=== PATIENT | male | born 1995 | race African-American/Black ===

== ENCOUNTER 2017-11-15 23:58 | Emergency (ER) | payer OTHER ==
[~2017-11-15] VITALS: Ht 177.8 cm; Wt 97.5 kg
--- NOTE | ~2017-11-15 | EKG ---
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
[2017-11-16 00:34] LABS: ABSOLUTE NEUTROPHILS 5.9 thou/uL (1.4-8.2); BASOPHILS 0.4 % (0.0-2.0); EOSINOPHILS 1.6 % (0.0-3.0); HEMATOCRIT 45.1 % (42.0-52.0); HEMOGLOBIN 15.2 gm/dL (14.0-18.0); LYMPHOCYTES 32.7 % (24.0-44.0); MCH 27.5 pg (26.0-34.0); MCHC 33.7 g/dL (28.0-37.0); MCV 81.6 fL (80.0-100.0); PLATELET COUNT 225 thou/uL (150-400); POLYS 58.3 % (36.0-66.0); RBC 5.52 mil/uL (4.50-6.00); RDW 13.8 % (10.5-14.5); WBC 10.1 thou/uL (4.0-11.0)
[2017-11-16 00:35] LABS: ANION GAP 11 mmol/L (7-16); BUN 10 mg/dL (7-18); CALCIUM 9.3 mg/dL (8.5-10.1); CHLORIDE 101 mmol/L (98-107); CO2 27 mmol/L (21-32); CREATININE 1.3 mg/dL (0.7-1.3); GLUCOSE 109 mg/dL (74-106); POTASSIUM 3.3 mmol/L (3.5-5.1); SODIUM 139 mmol/L (136-145)
[2017-11-16 00:44] LABS: TROPONIN-I < 0.04 ng/mL (<0.06)
[2017-11-16] MEDS ORDERED: PRILOSEC OTC20 MG PO (01:41)
== END 2017-11-16 01:57 | disposition home or self-care (01) ==
LOC: ER 23:58
PROVIDERS: Emergency Medicine
DX: R07.89 Other chest pain (principal); I10 Essential (primary) hypertension